=== PATIENT | female | born 1965 | race Caucasian/White ===

== ENCOUNTER 2017-04-09 21:42 | Emergency (ER) | payer OTHER | END 2017-04-10 00:18 | disposition home or self-care (01) | LOC: FTE 21:42 | DX: F41.9 Anxiety disorder, unspecified (principal); M54.2 Cervicalgia | CPT/HCPCS: 93005; 99283-25 ==

== ENCOUNTER 2017-10-31 19:29 | Emergency (ER) | payer OTHER ==
[2017-10-31] MEDS: HYDROCODONE/APAP (5/325) TAB PO (21:58)
== END 2017-10-31 22:00 | disposition home or self-care (01) ==
LOC: FTE 19:29
DX: K08.89 Other specified disorders of teeth and supporting structures (principal)
CPT/HCPCS: 99284; Z7502

== ENCOUNTER 2018-03-25 19:11 | Emergency (ER) | payer OTHER ==
[2018-03-25] MEDS: LORAZEPAM 1 MG TAB PO (21:01)
[2018-03-25 21:06] LABS: ADD MAN DIFF? NO
[2018-03-25 21:09] LABS: BASOPHILS % 0.4 % (0.0-2.0); EOSINOPHILS % 0.1 % (0.0-7.0); HEMATOCRIT 44.5 % (37.0-47.0); HEMOGLOBIN 14.8 g/dl (12.0-16.0); LYMPHOCYTES # 1.6 10^3/ul (0.8-2.9); LYMPHOCYTES % 15.3 % (15.0-51.0); MEAN CORPUSCULAR HEMOGLOBIN 29.8 pg (29.0-33.0); MEAN CORPUSCULAR HGB CONC 33.3 g/dl (32.0-37.0); MEAN CORPUSCULAR VOLUME 89.5 fl (82.0-101.0); MONOCYTE # 0.4 10^3/ul (0.3-0.9); NEUTROPHIL # 8.1 10^3/ul (1.6-7.5); NEUTROPHILS % 79.7 % (39.0-77.0); PLATELET COUNT 326 10^3/UL (140-415); RED BLOOD COUNT 4.97 10^6/ul (4.20-5.40); RED CELL DISTRIBUTION WIDTH 11.6 % (11.5-14.5)
[2018-03-25 21:09] LABS: WHITE BLOOD COUNT 10.1 10^3/ul (4.8-10.8)
[2018-03-25 21:12] LABS: ADD UMIC YES; UR ASCORBIC ACID 20 mg/dL (NEGATIVE); UR BILIRUBIN (Dip) NEGATIVE (NEGATIVE); UR BLOOD (Dip) NEGATIVE (NEGATIVE); UR CLARITY CLEAR (CLEAR); UR COLOR STRAW (YELLOW); UR GLUCOSE (Dip) NEGATIVE (NEGATIVE); UR KETONES (Dip) NEGATIVE (NEGATIVE); UR LEUKOCYTE ESTERASE (Dip) 1+ Leu/ul (NEGATIVE); UR MUCUS FEW /HPF (NONE SEEN); UR NITRITE (Dip) NEGATIVE (NEGATIVE); UR RBC 4 /HPF (0-5); UR SPECIFIC GRAVITY (Dip) 1.013 (1.003-1.030); UR SQUAMOUS EPITHELIAL CELL FEW /HPF (FEW); UR TOTAL PROTEIN (Dip) NEGATIVE (NEGATIVE); UR UROBILINOGEN (Dip) NEGATIVE (NEGATIVE); UR WBC 4 /HPF (0-5)
[2018-03-25 21:28] LABS: ALANINE AMINOTRANSFERASE 23 IU/L (13-69); ALBUMIN 4.8 g/dl (3.3-4.9); ALBUMIN/GLOBULIN RATIO 1.37; ALKALINE PHOSPHATASE 97 IU/L (42-121); ANION GAP 12 (5-13); ASPARTATE AMINO TRANSFERASE 26 IU/L (15-46); BILIRUBIN,INDIRECT 0.3 mg/dl (0-1.1); BILIRUBIN,TOTAL 0.3 mg/dl (0.2-1.3); BLOOD UREA NITROGEN 15 mg/dl (7-20); CALCIUM 9.9 mg/dl (8.4-10.2); CARBON DIOXIDE 27 mmol/L (21-31); CHLORIDE 104 mmol/L (97-110); CREATININE 0.75 mg/dl (0.44-1.00); Estimated GFR > 60 mL/min (>60); GLUCOSE 133 mg/dl (70-220); LIPASE 144 U/L (23-300); POTASSIUM 3.7 mmol/L (3.5-5.1); SODIUM 143 mmol/L (135-144); TOTAL PROTEIN 8.3 g/dl (6.1-8.1)
[2018-03-25 21:40] LABS: TROPONIN-I < 0.012 ng/ml (0.000-0.120)
== END 2018-03-25 23:10 | disposition left against medical advice (07) ==
LOC: FTE 19:11
DX: F41.9 Anxiety disorder, unspecified (principal)
CPT/HCPCS: 36415; 80053; 81001; 83690; 84484; 85025; 93005; 99284-25

== ENCOUNTER 2018-08-08 19:40 | Emergency (ER) | payer OTHER ==
[2018-08-08 22:07] LABS: ADD MAN DIFF? NO
[2018-08-08 22:12] LABS: WHITE BLOOD COUNT 8.5 10^3/ul (4.8-10.8)
[2018-08-08 22:12] LABS: BASOPHIL # 0.1 10^3/ul (0.0-0.1); BASOPHILS % 0.6 % (0.0-2.0); EOSINOPHILS % 0.2 % (0.0-7.0); HEMATOCRIT 42.4 % (37.0-47.0); LYMPHOCYTES # 1.5 10^3/ul (0.8-2.9); LYMPHOCYTES % 18.2 % (15.0-51.0); MEAN CORPUSCULAR HEMOGLOBIN 29.6 pg (29.0-33.0); MEAN CORPUSCULAR VOLUME 89.6 fl (82.0-101.0); MEAN PLATELET VOLUME 9.1 fl (7.4-10.4); MONOCYTE # 0.5 10^3/ul (0.3-0.9); MONOCYTES % 5.3 % (0.0-11.0); NEUTROPHIL # 6.4 10^3/ul (1.6-7.5); NEUTROPHILS % 75.5 % (39.0-77.0); PLATELET COUNT 282 10^3/UL (140-415); RED BLOOD COUNT 4.73 10^6/ul (4.20-5.40); RED CELL DISTRIBUTION WIDTH 11.5 % (11.5-14.5)
[2018-08-08] MEDS: KETOROLAC 15 MG INJ IV (22:28)
[2018-08-08] MEDS: SOD CHLORIDE 0.9% 1,000 ML IV (22:28)
[2018-08-08] MEDS: ONDANSETRON 4 MG INJ IV (22:28)
[2018-08-08] MEDS: LORAZEPAM 0.5 MG TAB PO (22:28)
[2018-08-08 22:37] LABS: ALANINE AMINOTRANSFERASE 34 IU/L (13-69); ALBUMIN 4.4 g/dl (3.3-4.9); ALBUMIN/GLOBULIN RATIO 1.12; ALKALINE PHOSPHATASE 104 IU/L (42-121); ANION GAP 9 (5-13); ASPARTATE AMINO TRANSFERASE 36 IU/L (15-46); BILIRUBIN,INDIRECT 0.2 mg/dl (0-1.1); BILIRUBIN,TOTAL 0.2 mg/dl (0.2-1.3); BLOOD UREA NITROGEN 14 mg/dl (7-20); CALCIUM 9.7 mg/dl (8.4-10.2); CARBON DIOXIDE 23 mmol/L (21-31); CHLORIDE 108 mmol/L (97-110); CREATININE 0.79 mg/dl (0.44-1.00); Estimated GFR > 60 mL/min (>60); GLUCOSE 120 mg/dl (70-220); LIPASE 137 U/L (23-300); SODIUM 140 mmol/L (135-144); TOTAL PROTEIN 8.3 g/dl (6.1-8.1)
[2018-08-08 22:48] LABS: TROPONIN-I < 0.012 ng/ml (0.000-0.120)
[2018-08-08 23:26] LABS: ADD UMIC YES; UR ASCORBIC ACID NEGATIVE (NEGATIVE); UR BACTERIA FEW /HPF (NONE SEEN); UR BILIRUBIN (Dip) NEGATIVE (NEGATIVE); UR BLOOD (Dip) 1+ mg/dL (NEGATIVE); UR CLARITY CLEAR (CLEAR); UR COLOR STRAW (YELLOW); UR GLUCOSE (Dip) NEGATIVE (NEGATIVE); UR KETONES (Dip) NEGATIVE (NEGATIVE); UR LEUKOCYTE ESTERASE (Dip) 2+ Leu/ul (NEGATIVE); UR NITRITE (Dip) NEGATIVE (NEGATIVE); UR NONSQUAMOUS EPITHELIAL CELL 1 /HPF (NONE SEEN); UR RBC 3 /HPF (0-5); UR SPECIFIC GRAVITY (Dip) 1.011 (1.003-1.030); UR SQUAMOUS EPITHELIAL CELL MODERATE /HPF (FEW); UR TOTAL PROTEIN (Dip) NEGATIVE (NEGATIVE); UR UROBILINOGEN (Dip) NEGATIVE (NEGATIVE); UR WBC 12 /HPF (0-5)
== END 2018-08-08 23:27 | disposition home or self-care (01) ==
LOC: E/R 23:27
DX: F41.9 Anxiety disorder, unspecified (principal); N39.0 Urinary tract infection, site not specified
CPT/HCPCS: 36415; 71045; 80053; 81001; 83690; 84484; 85025; 93005; 96374; 96375; 99285-25

== ENCOUNTER → 2018-10-20 | Emergency (ER) | payer OTHER ==
[2018-10-20] MEDS: KETOROLAC 30 MG INJ IM (14:47)
== END | disposition home or self-care (01) ==
LOC: FTE 14:14
DX: K08.89 Other specified disorders of teeth and supporting structures (principal); K02.9 Dental caries, unspecified
CPT/HCPCS: 81025; 96372; 99284-25

== ENCOUNTER 2018-10-21 15:58 | Emergency (ER) | payer OTHER ==
[2018-10-21] MEDS: ONDANSETRON (ODT) 4 MG TAB ODT (17:36)
[2018-10-21] MEDS: HYDROCODONE/APAP (10/325) TAB PO (17:37)
== END 2018-10-21 17:47 | disposition home or self-care (01) ==
LOC: FTE 15:58
DX: K04.7 Periapical abscess without sinus (principal); K08.9 Disorder of teeth and supporting structures, unspecified
CPT/HCPCS: 99283; Z7610